=== PATIENT | female | born 1985 | race American Indian/Alaskan Native ===

== ENCOUNTER 2018-04-01 15:10 | Emergency (ER) | payer SELFPAY ==
[2018-04-01 16:52] LABS: Basophils % (Auto) 0.5 % (0.0-1.8); Eosinophils % (Auto) 0.1 % (0.0-4.3); Hematocrit 42.8 % (30.3-42.9); Hemoglobin 14.5 gm/dl (10.1-14.3); Lymphocytes # (Auto) 1.1 K/mm3 (1.2-5.4); Lymphocytes % (Auto) 15.7 % (13.4-35.0); Mean Corpuscular HGB Conc 34 % (30-34); Mean Corpuscular Hemoglobin 32 pg (28-32); Mean Corpuscular Volume 94 fl (79-97); Monocytes # (Auto) 0.2 K/mm3 (0.0-0.8); Monocytes % (Auto) 2.8 % (0.0-7.3); Platelet Count 200 K/mm3 (140-440); Red Blood Count 4.55 M/mm3 (3.65-5.03); Red Cell Distribution Width 13.7 % (13.2-15.2)
[2018-04-01 16:59] LABS: Bilirubin,Urine NEG (Negative); Blood,Urine SM (Negative); Color,Urine Yellow (Yellow); Mucus,Urine FEW /HPF; Protein,Urine <15 mg/dL mg/dL (Negative); Urobilinogen,Urine < 2.0 mg/dL (<2.0)
[2018-04-01 17:04] LABS: Alanine Aminotransferase 18 units/L (7-56); Albumin 4.5 g/dL (3.9-5); BUN/Creatinine Ratio 17; Blood Urea Nitrogen 10 mg/dL (7-17); Hemolysis Index 3; Lipase 20 units/L (13-60)
[2018-04-01] MEDS ORDERED: MORPHINE IV ONE (17:50)
[2018-04-01] MEDS ORDERED: NACL 0.9% 1000 ML 1,000 ML IV ONE ×2 (17:51→19:07)
[2018-04-01] MEDS ORDERED: BENADRYL IV ONE (17:51)
[2018-04-01] MEDS ORDERED: ZOFRAN IV ONE ×2 (17:51→19:06)
--- NOTE | 2018-04-01 17:53 | Emergency Department Report ---
<JOHNATHAN MEJIAS - Last Filed: 04/01/18 19:18> ED Abdominal Pain HPI - General Chief Complaint: Abdominal Pain Stated Complaint: ABDOMINAL PAIN Time Seen by Provider: 04/01/18 17:46 Source: patient Mode of arrival: Ambulatory Limitations: No Limitations - History of Present Illness Initial Comments: 32-year-old female past medical history smoker presents with complaint of sudden onset upper abdominal pain with associated nausea and vomiting which occurred today starting this morning. Patient reports 10+ episodes of vomiting since this a.m. Began at approximately 9 AM this morning. Patient denies any shortness of breath with discrete chest pain primarily pointing to her periumbilical and epigastric region. Patient states she has some chills since this morning. Denies any abdominal surgeries. Last menstrual period was 3 weeks ago. Patient has an IUD in place. Patient states that she may have eaten fast food last night which she associates with pain. MD Complaint: abdominal pain -: This morning Location: periumbilical, epigastric Radiation: epigastric Migration to: periumbilical, epigastric Severity: moderate - Related Data Home Medications Medication Instructions Recorded Confirmed Last Taken Vits96/Iron Fum/Folic 1 tab PO DAILY 10/24/13 08/05/14 11/13/13 10:00 [ Tablet] 1 Previous Rx's Medication Instructions Recorded Last Taken Type Famotidine [Pepcid] 20 mg PO BID #40 tablet 08/05/14 Unknown Rx Hyoscyamine Subl [Levsin Sl] 0.125 mg PO Q6HR #20 tablet 08/05/14 Unknown Rx Promethazine [Phenergan] 25 mg PO Q6H PRN #30 tablet 08/05/14 Unknown Rx Fluticasone [Flonase] 2 spray NS QDAY #1 bottle 10/08/15 Unknown Rx Loratadine [Claritin] 10 mg PO DAILY #30 tablet 10/08/15 Unknown Rx Prednisone [predniSONE 10 mg 10 mg PO .TAPER #1 tab.ds.pk 10/08/15 Unknown Rx (6-Day Pack, 21 Tabs)] Promethazine /Codeine 5 ml PO Q6H PRN #150 ml 10/08/15 Unknown Rx [Phenergan/Codeine 6.25-10 mg/5 ml] Sulfamethoxazole/Trimethoprim 1 each PO BID #20 tablet 10/08/15 Unknown Rx [Bactrim DS TAB] Ibuprofen [Motrin] 600 mg PO Q8H PRN #30 tablet 04/01/18 Unknown Rx Ondansetron [Zofran Odt] 4 mg PO Q8HR PRN #20 tab.rapdis 04/01/18 Unknown Rx Allergies Allergy/AdvReac Type Severity Reaction Status Date / Time acetaminophen [From Percocet] Allergy Itching Verified 08/05/14 08:33 oxycodone HCl [From Percocet] Allergy Itching Verified 08/05/14 08:33 ED Review of Systems ROS: Stated complaint: ABDOMINAL PAIN Other details as noted in HPI ED Past Medical Hx - Past Medical History Hx Hypertension: No Hx Heart Attack/AMI: No Hx Congestive Heart Failure: No Hx Diabetes: No Hx Deep Vein Thrombosis: No Hx Liver Disease: No Hx Renal Disease: No Hx Sickle Cell Disease: No Hx Seizures: No Hx Asthma: No Hx COPD: No Hx HIV: No - Surgical History Hx Pacemaker: No Hx Internal Defibrillator: No - Social History Smoking Status: Current Every Day Smoker Substance Use Type: Alcohol - Medications Home Medications: Home Medications Medication Instructions Recorded Confirmed Last Taken Type Vits96/Iron Fum/Folic 1 tab PO DAILY 10/24/13 08/05/14 11/13/13 10:00 History [ Tablet] 1 Famotidine [Pepcid] 20 mg PO BID #40 tablet 08/05/14 Unknown Rx Hyoscyamine Subl [Levsin Sl] 0.125 mg PO Q6HR #20 tablet 08/05/14 Unknown Rx Promethazine [Phenergan] 25 mg PO Q6H PRN #30 tablet 08/05/14 Unknown Rx Fluticasone [Flonase] 2 spray NS QDAY #1 bottle 10/08/15 Unknown Rx Loratadine [Claritin] 10 mg PO DAILY #30 tablet 10/08/15 Unknown Rx Prednisone [predniSONE 10 mg 10 mg PO .TAPER #1 tab.ds.pk 10/08/15 Unknown Rx (6-Day Pack, 21 Tabs)] Promethazine /Codeine 5 ml PO Q6H PRN #150 ml 10/08/15 Unknown Rx [Phenergan/Codeine 6.25-10 mg/5 ml] Sulfamethoxazole/Trimethoprim 1 each PO BID #20 tablet 10/08/15 Unknown Rx [Bactrim DS TAB] Ibuprofen [Motrin] 600 mg PO Q8H PRN #30 tablet 04/01/18 Unknown Rx Ondansetron [Zofran Odt] 4 mg PO Q8HR PRN #20 tab.rapdis 04/01/18 Unknown Rx ED Physical Exam - General Limitations: No Limitations General appearance: alert, in no apparent distress - Head Head exam: Present: atraumatic, normocephalic - Eye Eye exam: Present: normal appearance - ENT ENT exam: Present: mucous membranes moist - Neck Neck exam: Present: normal inspection - Respiratory Respiratory exam: Present: normal lung sounds bilaterally. Absent: respiratory distress - Cardiovascular Cardiovascular Exam: Present: regular rate, normal rhythm. Absent: systolic murmur, diastolic murmur, rubs, gallop - GI/Abdominal GI/Abdominal exam: Present: tenderness (epigastric pain on palpation), normal bowel sounds - Extremities Exam Extremities exam: Present: normal inspection - Back Exam Back exam: Present: normal inspection - Neurological Exam Neurological exam: Present: alert, oriented X3 - Psychiatric Psychiatric exam: Present: normal affect, normal mood - Skin Skin exam: Present: warm, dry, intact, normal color. Absent: rash ED Course Vital Signs 04/01/18 16:08 Temperature 98.4 F Pulse Rate 91 H Respiratory 20 Rate Blood Pressure 121/92 O2 Sat by Pulse 99 Oximetry ED Medical Decision Making - Lab Data Result diagrams: 04/01/18 16:29 04/01/18 16:29 - Medical Decision Making A/P: Epigastric abdominal pain 1- In context of the patient's acute sudden onset of severe pain and worsening pain clinically will order a CT scan with IV contrast. Ultrasound is in process 2- case signed out to nurse practitioner Mr. Brito to follow-up imaging and reassess patient 3- patient given dose of Benadryl with IV narcotic as she states she sometimes gets itchy with IV narcotics 4- patient reports no pelvic symptoms no vaginal discharge or current vaginal bleeding. States she does have an IUD Critical care attestation.: If time is entered above; I have spent that time in minutes in the direct care of this critically ill patient, excluding procedure time. ED Disposition Clinical Impression: Abdominal pain Qualifiers: Abdominal location: epigastric Qualified Code(s): R10.13 - Epigastric pain Nausea & vomiting Qualifiers: Vomiting type: unspecified Vomiting Intractability: non-intractable Qualified Code(s): R11.2 - Nausea with vomiting, unspecified Disposition: DC-01 TO HOME OR SELFCARE Condition: Stable Instructions: Abdominal Pain (ED), Acute Nausea and Vomiting (ED), Ondansetron (By mouth) Additional Instructions: Follow-up with a primary care/GI doctor in 3-5 days or if symptoms worsen and continue return to emergency room as soon as possible. Do not operate any machinery after discharge due to possible drowsiness of Morphine. Prescriptions: Ibuprofen [Motrin] 600 mg PO Q8H PRN #30 tablet PRN Reason: Pain Ondansetron [Zofran Odt] 4 mg PO Q8HR PRN #20 tab.rapdis PRN Reason: Nausea Referrals: PRIMARY CAREMD [Primary Care Provider] - 3-5 Days JOHNATHAN MAXWELL MD [Staff Physician] - 3-5 Days [facility] [Outside] - 3-5 Days [facility] [Outside] - 3-5 Days [facility] [Provider Group] - 3-5 Days Forms: Work/School Release Form(ED) <MICHAEL BRITO - Last Filed: 04/01/18 21:08> ED Medical Decision Making - Lab Data Result diagrams: 04/01/18 16:29 04/01/18 16:29 - Medical Decision Making Patient was signed out to me for pending CT scan by Johnathan MELENDEZ. I examined the patient and her symptoms of pain has resolved. A by mouth challenge has been obtained and patient drank 2 apple juices with no nausea vomiting. CT scan obtained and is unremarkable as well as a ultrasound report and all dictated by the radiologist. Patient is notified of the report with no questions noted by the patient. I will discharge patient with Zofran and Motrin. Patient was instructed not to operate any machinery after discharge and stated that a family member will drive her home after discharged to possible drowsiness of morphine. Patient was instructed to Follow-up with a primary care/GI doctor in 3-5 days or if symptoms worsen and continue return to emergency room as soon as possible. At time of discharge, the patient does not seem toxic or ill in appearance. No acute signs of distress noted. Patient agrees to discharge treatment plan of care. No further questions noted by the patient. ED Disposition Is pt being admited?: No Does the pt Need Aspirin: No
[2018-04-01] MEDS ORDERED: PEPCID IV ONE ×2 (19:02→19:07)
--- NOTE | 2018-04-01 19:14 | Ultrasound Report ---
FINAL REPORT EXAM: US ABDOMEN LIMITED HISTORY: epigastric pain sudden this am TECHNIQUE: Ultrasound abdomen PRIORS: None. FINDINGS: No focal abnormalities identified in the visualized portion liver parenchyma. No evidence of cholelithiasis or gallbladder wall thickening. No pericholecystic fluid seen. The common bile duct is within normal limits measuring 0.19 centimeters Right kidney demonstrates no evidence of hydronephrosis. It measures 10.3 x 5.2 x 4.1 centimeters. Cortical thickness 1.3 centimeters IMPRESSION: Negative. No evidence of biliary obstruction or cholelithiasis
--- NOTE | 2018-04-01 20:14 | Cat Scan Report ---
FINAL REPORT EXAM: CT ABDOMEN PELVIS W CON HISTORY: epigastric pain nausea and vomiting TECHNIQUE: CT abdomen and pelvis with intravenous contrast PRIORS: None. FINDINGS: No acute abnormality identified in the lung bases. No focal abnormality identified within the liver parenchyma. The spleen demonstrates normal size and attenuation. No pancreatic abnormalities seen. The kidneys demonstrate symmetric contrast enhancement. No evidence of hydronephrosis. The adrenal glands are unremarkable Abdominal aorta is normal in caliber. No pathologically enlarged lymph nodes are identified. No signs of free fluid or free air No evidence of small bowel dilatation. Colon is nondistended. No pericolonic inflammatory change. Urinary bladder is unremarkable. There is some linear density within the posterior soft tissues of the lower back with numerous small nodules may be posttraumatic in nature please correlate with any clinical findings or history. Noted is an IUD within the uterus. IMPRESSION: No acute findings in the abdomen or pelvis Subcutaneous soft tissue densities posterior lower etiology uncertain may be posttraumatic or postinflammatory in nature. IUD noted within the uterus centrally.
[2018-04-01 21:12] VITALS: BP 102/48
== END 2018-04-01 21:16 | disposition home or self-care (01) ==
LOC: ED 15:10
DX: R10.13 Epigastric pain (principal); R11.2 Nausea with vomiting, unspecified; F17.200 Nicotine dependence, unspecified, uncomplicated; Z79.899 Other long term (current) drug therapy; Z88.8 Allergy status to other drugs, medicaments and biological substances; Z88.6 Allergy status to analgesic agent
CPT/HCPCS: 36415; 74177; 76705; 80053; 81001; 82140; 83690; 84703; 85025; 96361; 96374; 96375; 96376; 99284; J1200; J2270; J2405; J7030; Q9967